=== PATIENT | male | born 1980 | race Caucasian/White ===

== ENCOUNTER 2022-04-10 02:58 | Emergency (ER) | payer MEDICAID ==
[~2022-04-10] VITALS: Ht 175.3 cm; Wt 111.6 kg
[2022-04-10 03:05] VITALS: BP 148/80
--- NOTE | 2022-04-10 03:08 | NUR ---
TO BED AMBULATORY
--- NOTE | 2022-04-10 03:47 | NUR ---
X-Ray at bedside.
--- NOTE | 2022-04-10 03:56 | NUR ---
pt is alert and oriented x 4 complaining cosntipation. ambulatory. room air
[2022-04-10] MEDS ORDERED: DOCU1TAB73 PO (04:23)
[2022-04-10] MEDS ORDERED: MIRABULK PO (04:23)
[2022-04-10 04:36] VITALS: BP 148/80
--- NOTE | 2022-04-10 04:39 | NUR ---
Patient discharged with v/s stable. Written and verbal after care instructions given and explained. Patient verbalized understanding. Ambulatory with steady gait. All questions addressed prior to discharge. Advised to follow up with PMD. Pt ent with his elisabeth
== END 2022-04-10 04:39 | disposition home or self-care (01) ==
LOC: MED 02:58
DX: K59.00 Constipation, unspecified (principal)
CPT/HCPCS: 74018; 99283; Q0092

== ENCOUNTER 2023-10-21 05:21 | Emergency (ER) | payer BC, MEDICAID ==
[~2023-10-21] VITALS: Ht 175.3 cm; Wt 111.1 kg
[~2023-10-21 05:21] MED LIST: MIRABULK PO; SENN1TAB80 PO
[2023-10-21 05:30] VITALS: BP 135/86; PULSE 72; RESP 17; TEMP 98; O2SAT 98
[2023-10-21] MEDS ORDERED: BENZ200C4 PO (07:23)
[2023-10-21] MEDS ORDERED: ALBU0.0912 IH (07:23)
[2023-10-21] MEDS ORDERED: AZIT250T4 PO (07:23)
[2023-10-21 07:30] VITALS: BP 135/86; PULSE 72; RESP 17; TEMP 98; O2SAT 98
== END 2023-10-21 07:31 | disposition home or self-care (01) ==
LOC: MED 05:21
DX: J40 Bronchitis, not specified as acute or chronic (principal); Z79.899 Other long term (current) drug therapy
CPT/HCPCS: 71046; 99283